=== PATIENT | female | born 1960 | race Hispanic/Latino ===

== ENCOUNTER 2018-03-04 15:23 | Emergency (ER) | payer BC ==
[~2018-03-04] VITALS: Ht 152.4 cm; Wt 63.5 kg
[2018-03-04] MEDS ORDERED: TRAMADOL HCL 50 MG TABLET ONE (15:50)
[2018-03-04] MEDS ORDERED: TETANUS/DIPHTHERIA TOXOID [ADULT] 0.5 ML VIAL IM ONE (15:51)
[2018-03-04] MEDS ORDERED: OCTYL 2-CYANOACRYLATE 1 EACH TP ONE ×2 (15:51→16:38)
[2018-03-04] MEDS ORDERED: CEFDINIR 125 MG/5 ML 60ML BOTTLE PO SCH (17:30)
== END 2018-03-04 17:51 | disposition home or self-care (01) ==
LOC: EDH 15:23
DX: S02.2XXA Fracture of nasal bones, initial encounter for closed fracture (principal); S01.21XA Laceration without foreign body of nose, initial encounter; I10 Essential (primary) hypertension; E11.9 Type 2 diabetes mellitus without complications; E78.5 Hyperlipidemia, unspecified; E07.9 Disorder of thyroid, unspecified; W01.198A Fall on same level from slipping, tripping and stumbling with subsequent striking against other object, initial encounter; Y93.01 Activity, walking, marching and hiking; Y92.89 Other specified places as the place of occurrence of the external cause; Y99.8 Other external cause status
CPT/HCPCS: 12011; 70160; 90471; 90714

== ENCOUNTER 2018-05-24 02:45 | Observation (INO) | payer BC ==
[~2018-05-24] VITALS: Ht 149.9 cm; Wt 57.2 kg
[2018-05-24 03:28] LABS: BASOPHILS % (AUTO) 0.4 % (0.0-5.0); HEMATOCRIT 37.1 % (36-48); LYMPHOCYTES % (AUTO) 19.6 % (21.0-51.0); MEAN CORPUSCULAR HEMOGLOBIN 29.9 pg (27.0-33.0); MEAN CORPUSCULAR HGB CONC 34.1 g/dL (32.0-36.0); MEAN CORPUSCULAR VOLUME 87.6 fL (79-99); NUCLEATED RED BLOOD CELLS 0.1 % (0.0-0.19); PLATELET COUNT (AUTO) 193 K/uL (130-400); RED BLOOD CELL COUNT(AUTO) 4.23 MIL/uL (4.00-5.50); RED CELL DISTRIBUTION WIDTH 13.6 % (11.0-15.5); WHITE BLOOD COUNT (AUTO) 8.4 K/uL (4.8-10.8)
[2018-05-24 03:36] LABS: CREATININE 0.9 mg/dL (0.5-1.5); POTASSIUM 3.6 mmol/L (3.5-5.1)
[2018-05-24 03:40] LABS: B-TYPE NATRIURETIC PEPTIDE < 5 pg/mL (0-100)
[2018-05-24 03:41] LABS: ALBUMIN 3.6 g/dL (3.5-5.0); BILIRUBIN,TOTAL 0.7 mg/dL (0.2-1.0); MAGNESIUM 1.3 mg/dL (1.80-2.40); TOTAL PROTEIN, SERUM 6.9 g/dL (6.0-8.3)
[2018-05-24] MEDS ORDERED: MAGNESIUM 2GM PREMIX 50ML 50 ML IV ONE (04:10)
[2018-05-24] MEDS ORDERED: ONDANSETRON HCL 4 MG/2 ML VIAL IV PRN (05:00)
[2018-05-24] MEDS ORDERED: HYDRALAZINE HCL 20 MG/ML VIAL IV PRN (05:00)
[2018-05-24] MEDS ORDERED: MAGNESIUM 2GM PREMIX 50ML 50 ML IV PRN (05:00)
[2018-05-24] MEDS ORDERED: ACETAMINOPHEN 325 MG TAB PO PRN ×2 (05:00)
[2018-05-24 06:38] VITALS: BP 151/76
[2018-05-24] MEDS ORDERED: GLYB5TAB8 PO (06:40)
[2018-05-24] MEDS ORDERED: ESCI20TA36 PO (06:40)
[2018-05-24] MEDS ORDERED: METO50TA18 PO (06:40)
[2018-05-24] MEDS ORDERED: SITA1TBM4 PO (06:40)
[2018-05-24] MEDS ORDERED: LISI-613 PO (06:40)
[2018-05-24] MEDS ORDERED: LEVO88TA7 PO (06:40)
[2018-05-24] MEDS ORDERED: ROSU5TAB11 PO (06:40)
[2018-05-24 07:00] VITALS: BP 157/79
[2018-05-24 07:20] LABS: THYROID STIMULATING HORMONE 1.67 uIU/mL (0.36-3.74)
[2018-05-24] MEDS ORDERED: DEXTROSE 50%-WATER 50 ML DISP.SYRIN IV PRN (08:15)
[2018-05-24] MEDS ORDERED: GLUCAGON 1MG KIT 1 MG ML IM PRN (08:15)
--- NOTE | 2018-05-24 08:30 | NUR ---
AM ASSESSMENT PT LAYING IN BED, HOB ELEVATED 30 DEGREES, RESTING. A/O X 3. NO SOB. NO DISTRESS NOTED. DENIES CHEST PAIN OR DISCOMFORT. DENIES PALPITATIONS. TELE: SR 80s. DENIES N/V AND/OR DIARRHEA. GBW. UP W/ASSISTANCE. INSTRUCTED TO CALL FOR ASSISTANCE. CALL ADELE W/IN REACH. Addendum: 05/24/18 at 1237 by HOANG BURNETT RN RN Amended: Links added.
[2018-05-24] MEDS ORDERED: FAMOTIDINE/PF 20 MG/2 ML VIAL IV SCH (09:00)
[2018-05-24] MEDS ORDERED: ENOXAPARIN SODIUM 30 MG/0.3 ML SQ SCH (09:00)
[2018-05-24] MEDS ORDERED: FAMOTIDINE 20MG TAB 20 MG TAB PO SCH (09:00)
[2018-05-24 11:00] VITALS: BP 158/79
[2018-05-24] MEDS ORDERED: METOPROLOL TARTRATE 25 MG TAB PO SCH (11:30)
[2018-05-24] MEDS ORDERED: INSULIN HUMULIN R 100 UNIT/ML 3ML SQ SCH (11:30)
[2018-05-24] MEDS ORDERED: POTASSIUM CHLORIDE 20 MEQ ERTAB PO SCH (11:30)
[2018-05-24 12:41] VITALS: BP 138/85
--- NOTE | 2018-05-24 12:50 | NUR ---
DISCHARGE VERBAL & WRITTEN DISCHARGE INSTRUCTIONS REVIEWED & GIVEN TO PT & DAUGHTER IN IRISH. PROPER CARE & MGT OF PALPITATIONS REVIEWED. PT TO CONTINUE HOME MEDICATIONS. F/U W/PCP IN 1 WEEK. TELE VINITA REMOVED. IV DISCONTINUED. PT & DAUGHTER TO GATHER PERSONAL BELONGINGS. WILL NOTIFY STAFF WHEN READY TO BE TAKEN TO PRIVATE VEHICLE.
--- NOTE | 2018-05-24 13:10 | NUR ---
DISCHARGE PT TAKEN TO PRIVATE VEHICLE VIA WC BY Ninfa SWEENEY. DAUGHTER AWAITING FOR PT IN VEHICLE. NO DISTRESS NOTED.
== END 2018-05-24 13:15 | disposition home or self-care (01) ==
LOC: EDH 02:45 → EDHIP 04:45 → INTOOBSV 04:45 → 2DH 06:12
PROVIDERS: ADMIT Internal Medicine; ATTEND Internal Medicine
DX: R00.2 Palpitations (principal); E83.42 Hypomagnesemia; E03.9 Hypothyroidism, unspecified; E78.00 Pure hypercholesterolemia, unspecified; I10 Essential (primary) hypertension; E11.9 Type 2 diabetes mellitus without complications; E78.5 Hyperlipidemia, unspecified; Z79.899 Other long term (current) drug therapy
CPT/HCPCS: 36415; 80053; 82550; 82948 ×2; 83735 ×2; 83880; 84443; 84484 ×3; 85025; 93005; 96372; 99283; G0378 ×8; J1650; J3475